=== PATIENT | female | born 1965 | race Caucasian/White ===

== ENCOUNTER 2017-02-14 07:39 | Day surgery (SDC) | payer MEDICAID ==
[~2017-02-14] VITALS: Ht 157.5 cm; Wt 86.6 kg
[2017-02-14] VITALS (10 sets, daily range): BP systolic 112–154; BP diastolic 61–84; PULSE 68–72; RESP 16–20; Ht 157.5 cm; Wt 86.6 kg
[~2017-02-14 07:39] MED LIST: CEFAZOLIN 1 GM/50 ML (PMX) 50 ML IVPB ONE; SOD CHLORIDE 0.9% 1,000 ML IV SCH; [UNRECOGNIZED DRUG - OTHER]
[2017-02-14] MEDS ORDERED: CETI-240 PO (08:33)
[2017-02-14] MEDS ORDERED: FENTAnyl 50 MCG/ML VIAL ONE (10:05)
[2017-02-14] MEDS ORDERED: MIDAZOLAM 1 MG/ML 2 ML INJ ONE (10:05)
[2017-02-14] MEDS ORDERED: LIDOCAINE 2% (SDV) 5 ML INJ ONE (10:05)
[2017-02-14] MEDS ORDERED: PROPOFOL 20 ML ONE (10:05)
[2017-02-14] MEDS ORDERED: DIPHENHYDRAMINE 50 MG INJ IV PRN (10:30)
[2017-02-14] MEDS ORDERED: MEPERIDINE 25 MG INJ IV PRN (10:30)
[2017-02-14] MEDS ORDERED: METOCLOPRAMIDE 10 MG INJ IV PRN (10:30)
[2017-02-14] MEDS ORDERED: HYDROmorphONE (0.2 MG/ML) 10ML SYG IV PRN ×2 (10:30)
[2017-02-14] MEDS ORDERED: FENTAnyl 50 MCG/ML VIAL IV PRN (10:30)
[2017-02-14] MEDS ORDERED: ONDANSETRON 4 MG INJ IV PRN (10:30)
[2017-02-14] MEDS ORDERED: OXYCODONE/ACETAMINOPHEN (5/325) TAB PO PRN ×2 (10:30)
[2017-02-14] MEDS ORDERED: PROCHLORPERAZINE 10 MG INJ IV PRN (10:30)
[2017-02-14] MEDS ORDERED: CEFAZOLIN 1 GM INJ ONE (11:05)
[2017-02-14] MEDS ORDERED: METOCLOPRAMIDE 10 MG INJ ONE (11:07)
[2017-02-14] MEDS ORDERED: ONDANSETRON 4 MG INJ ONE (11:07)
[2017-02-14] MEDS ORDERED: DEXAMETHASONE 4 MG/ML 1 ML INJ ONE (11:08)
[2017-02-14] MEDS ORDERED: EPHEDrine SULFATE 50 MG/5 ML SYG ONE (11:08)
[2017-02-14] MEDS ORDERED: SCOPOLAMINE 1.5 MG PATCH ONE (11:08)
[2017-02-14] MEDS ORDERED: KETOROLAC 30 MG INJ ONE (11:23)
--- NOTE | 2017-02-19 10:42 | OPR ---
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 PROCEDURES: Left partial mastectomy. ANESTHESIA: General. ANESTHESIOLOGIST: Nurse newspaper vendor SURGEON: Alex Mayo MD. 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 She was counseled as to the risks versus benefits of resection with left partial mastectomy. She consented and was scheduled for surgery. OPERATIVE PROCEDURE: Patient brought to the operating theater, placed under general anesthesia. The left breast was prepped and draped in the usual sterile fashion. Previous surgical incisional scar was reincised. Subcutaneous tissue was dissected with cautery. The skin edges were then elevated with skin hooks, and wide circumferential dissection of the tissue associated with the mass took place. The mass was elevated, transected, and sent for permanent pathologic analysis. The wound was irrigated. Minimal bleeding was controlled with cautery. The skin was then reapproximated with a deep dermal layer of 4-0 Vicryl sutures in interrupted fashion, followed by final skin approximation with 5- 0 PDS sutures in subcuticular fashion. Benzoin and Steri-Strips were then applied. Patient tolerated procedure well. Estimated blood loss was 10 mL. There were no complications. The patient was transported in stable condition to recovery room where a circumferential compression dressing was applied. Dictated By: Alex Mayo MD /inna/alison /Document#: [id number]
== END 2017-02-14 13:00 | disposition home or self-care (01) ==
LOC: SDS 07:39
PROVIDERS: ATTEND Surgery Surgical Oncology
DX: C50.912 Malignant neoplasm of unspecified site of left female breast (principal); N60.92 Unspecified benign mammary dysplasia of left breast; N60.82 Other benign mammary dysplasias of left breast; E66.9 Obesity, unspecified; Z68.34 Body mass index [BMI] 34.0-34.9, adult; G47.30 Sleep apnea, unspecified
CPT/HCPCS: 19301; 88307; J0690; J1100; J1885; J2175; J2250; J2405; J2765; J3010; Z7512; Z7610